=== PATIENT | male | born 1975 | race Caucasian/White ===

== ENCOUNTER 2019-09-09 16:42 | Emergency (ER) | payer MEDICAID, OTHER ==
[2019-09-09] MEDS ORDERED: METHOCARBAMOL 500 MG TABLET PO ONE (17:09)
--- NOTE | 2019-09-09 17:11 | ER Document Report ---
ED Medical Screen (RME) - General Chief Complaint: Back Pain Stated Complaint: BACK PAIN Time Seen by Provider: 09/09/19 17:03 Notes: Patient is a 44-year-old male who presents the emergency department with a chief complaint of low back pain. Patient states that he has been helping his [id number] help with transferring back and forth. He went to help her and "felt a pop in his back." Patient's pain is primarily on the right side. He denies any bladder or bowel dysfunction. States that he had a laminectomy in March of this year. Exam: Tender right lower back. I have greeted and performed a rapid initial assessment of this patient. A comprehensive ED assessment and evaluation of the patient, analysis of test results and completion of medical decision making process will be conducted by an additional ED providers. TRAVEL OUTSIDE OF THE [place] IN LAST 30 DAYS: No - Related Data Allergies/Adverse Reactions: No Known Allergies Allergy (Verified 09/09/19 16:56) Past Medical History - Social History Frequency of alcohol use: None Drug Abuse: None - Immunizations Hx Diphtheria, Pertussis, Tetanus Vaccination: No Physical Exam - Vital signs Vitals: Temp Pulse BP Pulse Ox 97.7 F 71 139/93 H 100 09/09/19 16:46 09/09/19 16:46 09/09/19 16:46 09/09/19 16:46 Course - Vital Signs Vital signs: Temp Pulse Resp BP Pulse Ox 97.7 F 71 139/93 H 100 09/09/19 16:46 09/09/19 16:46 09/09/19 16:46 09/09/19 16:46
--- NOTE | 2019-09-09 18:17 | RADIOLOGY REPORT (SQ) ---
EXAM DESCRIPTION: CT LUMBAR SPINE WITHOUT COMPLETED DATE/TIME: 09/09/2019 5:31 pm REASON FOR STUDY: back pain; felt pop in back COMPARISON: None. TECHNIQUE: Axial images acquired through the lumbar spine without intravenous contrast. Images revi ewed with lung, soft tissue and bone windows. Reconstructed coronal and sagittal MPR images reviewed . All images stored on PACS. All CT scanners at this facility use dose modulation, iterative reconstruction, and/or weight based d osing when appropriate to reduce radiation dose to as low as reasonably achievable (ALARA). [facility]: Dose Right [facility]: CareDose [facility]: Dose Right [facility]: Teradose 4D [facility]: Smart [employer] RADIATION DOSE: mGy. LIMITATIONS: None. FINDINGS: SEGMENTATION: Normal. No transitional anatomy. ALIGNMENT: Normal. VERTEBRAL BODIES: No fractures. No dislocation. No acute findings. DISCS: No significant protrusions. Study limited by lack of intrathecal contrast. PEDICLES, TRANSVERSE PROCESSES: No fractures. No dislocation. No acute findings. FACETS, POSTERIOR ELEMENTS: Partial laminectomy changes on the left at L4 HARDWARE: None in the spine. VISUALIZED RIBS: No fractures. SOFT TISSUES: No significant or acute finding in adjacent soft tissues. OTHER: No other significant finding. IMPRESSION: Partial laminectomy at L4. No acute findings. TECHNICAL DOCUMENTATION: JOB ID: [id number] Quality ID # [id number]: Final reports with documentation of one or more dose reduction techniques (e.g., Au tomated exposure control, adjustment of the mA and/or kV according to patient size, use of iterative reconstruction technique) 2010 [employer]- All Rights Reserved Reading location - IP/workstation name: [email or web address]
[2019-09-09] MEDS ORDERED: PREDNISONE 20 MG TABLET PO ONE (21:04)
--- NOTE | 2019-09-09 21:09 | ER Document Report ---
ED General - General Chief Complaint: Back Pain Stated Complaint: BACK PAIN Time Seen by Provider: 09/09/19 17:03 TRAVEL OUTSIDE OF THE [place] IN LAST 30 DAYS: No - HPI Notes: Patient is a 44-year-old male with a history of chronic back issues, status post laminectomy, who presents emergency department for evaluation of lower back pain. He states he was helping his [id number] get up, felt a pop in his back and pain went down his leg. He describes a sharp and stabbing, rates it a 4 out of 5. Nothing to make it better or worse. He denies any bowel or bladder incontinence, no saddle anesthesia, no focal numbness or weakness. He tried some ibuprofen with minimal relief. - Related Data Allergies/Adverse Reactions: No Known Allergies Allergy (Verified 09/09/19 19:50) Home Medications: Ibuprofen, [place] Past Medical History - General Information source: Patient - Social History Smoking Status: Current Every Day Smoker Frequency of alcohol use: None Drug Abuse: None Family History: Reviewed & Not Pertinent, Malignancy Patient has suicidal ideation: No Patient has homicidal ideation: No Musculoskeletal Medical History: Reports Hx Arthritis, Reports Other - Chronic back pain Past Surgical History: Reports: Hx Orthopedic Surgery - left knee; laminectomy L2-4 - Immunizations Hx Diphtheria, Pertussis, Tetanus Vaccination: No Review of Systems - Review of Systems Constitutional: No symptoms reported EENT: No symptoms reported Cardiovascular: No symptoms reported Gastrointestinal: No symptoms reported Genitourinary: No symptoms reported Musculoskeletal: See HPI Skin: No symptoms reported Neurological/Psychological: No symptoms reported Physical Exam - Vital signs Vitals: Temp Pulse BP Pulse Ox 97.7 F 71 139/93 H 100 09/09/19 16:46 09/09/19 16:46 09/09/19 16:46 09/09/19 16:46 - Notes Notes: Vital signs reviewed, please refer to chart. Head is normocephalic, atraumatic. Pupils equal round, reactive to light. Neck is supple without meningismus. Heart is regular rate and rhythm. Lungs are clear to auscultation bilaterally. Abdomen is soft, nontender, normoactive bowel sounds throughout. Extremities without cyanosis, clubbing. Posterior calves are nontender. Peripheral pulses are equal. Examination of the spine yields a well-healed surgical scar approximately L3 down to L5 consistent with his recent laminectomy. No signs of dehiscence or erythema noted. He has some paraspinal musculature tenderness noted on the right proximal L2-L4 with associated spasm. Negative straight leg raise bilaterally. Patellar reflexes +1 on the right, +2 on the left. Bilateral Achilles reflexes are +1. Sensation is intact. Negative straight leg raise bilaterally. Strength testing deferred secondary to pain. Course - Re-evaluation Re-evalutation: 09/09/19 21:06 Patient presents emergency department for evaluation of pain in his lower back. He is advised that, with his back pain issues, he should not be lifting with his back. He voiced understanding. He had a CT scan which failed to show any significant ab normalities. I did expect to the patient that this is not the ideal modality to look at lumbar disks, and he should follow-up with his primary care provider. Otherwise he has no red flag symptoms. I will then send him home with some prednisone. He already has pain medication at home. He is to return to the ED with worsening or new concerning symptoms of any sort. - Vital Signs Vital signs: Temp Pulse Resp BP Pulse Ox 97.7 F 71 139/93 H 100 09/09/19 16:46 09/09/19 16:46 09/09/19 16:46 09/09/19 16:46 Discharge - Discharge Clinical Impression: Lumbar radiculopathy, right Condition: Stable Disposition: HOME, SELF-CARE Instructions: Low Back Pain ([facility]) Additional Instructions: Take prednisone as directed until gone, starting tomorrow morning. Continue your pain medications at home as needed. Follow-up with primary care. If your pain persist, you may need to repeat MRI. If you develop worsening or new concerning symptoms of any sort, including but not limited to increased weakness, increased pain, incontinence of bowel or bladder, please return immediately to the emergency department for evaluation.
[2019-09-09 21:28] VITALS: BP 151/83
== END 2019-09-09 21:28 | disposition home or self-care (01) ==
LOC: ER 16:42
DX: M54.16 Radiculopathy, lumbar region (principal); F17.200 Nicotine dependence, unspecified, uncomplicated
CPT/HCPCS: 72131; J7512; 99283